=== PATIENT | female | born 1970 | race Caucasian/White ===

== ENCOUNTER → 2016-09-11 | Outpatient (CLI) | payer OTHER ==
--- NOTE | 2016-09-11 11:25 | REP ---
PELVIC ULTRASOUND: Real-time sonographic evaluation of the pelvis performed utilizing transabdominal and endovaginal technique. Bladder measures 3.3 x 7.4 x 10.3 cm. Uterine measures 7.2 x 3.7 x 5.1 cm. Endometrial thickness is approximately 6 mm. There is no endometrial fluid collection. Ovaries appear normal in size and echotexture, right ovary measuring 2.1 x 1.2 x 2.3 cm and left ovary 2.2 x 1.1 x 1.6 cm. There is no adnexal mass or free fluid. IMPRESSION: Negative pelvic ultrasound. Signed by Gilles Nunes MD 09/11/2016 01:27 P
== END ==
LOC: M RAD 10:04
PROVIDERS: ATTEND Obstetrics & Gynecology
DX: N92.6 Irregular menstruation, unspecified (principal)

== ENCOUNTER 2017-12-06 09:57 | Day surgery (SDC) | payer OTHER ==
[~2017-12-06 09:57] MED LIST: NS 1,000 ML IV
[2017-12-06] MEDS ORDERED: PROPOFOL 200 MG/20 ML VIAL As Ordered (10:35)
[2017-12-06] MEDS ORDERED: LIDOCAINE 2% INJ 100 MG/5 ML SDV (FOR ANES.) As Ordered (10:35)
== END 2017-12-06 11:48 | disposition home or self-care (01) ==
LOC: M OPP 09:57
DX: Z12.11 Encounter for screening for malignant neoplasm of colon (principal); Z80.0 Family history of malignant neoplasm of digestive organs; F32.9 Major depressive disorder, single episode, unspecified; E55.9 Vitamin D deficiency, unspecified; K21.9 Gastro-esophageal reflux disease without esophagitis; Z79.899 Other long term (current) drug therapy
CPT/HCPCS: 45378